=== PATIENT | male | born 1940 | race Caucasian/White ===

== ENCOUNTER 2016-07-06 15:41 | Inpatient (IN) | payer OTHER ==
[2016-07-06] MEDS ORDERED: ASPIRIN PO ONE (15:58)
[2016-07-06] MEDS ORDERED: ASPIRIN PO STA (15:58)
[2016-07-06 16:10] LABS: MANUAL DIFF NEEDED? NO
[2016-07-06 16:19] LABS: BASO% 0.2 % (0.0-0.8); EOS# 0.07 X1000 (0.0-0.7); EOS% 1.2 % (0.0-10.0); HEMOGLOBIN 14.9 g/dL (14.0-18.0); IMM GRAN# 0.01 X1000 (0.0-0.04); IMM GRAN% 0.2 % (0.0-0.5); LYMPH% 22.6 % (20.5-51.1); MCH 30.5 PG (27-31); MCHC 34.7 g/dL (33-37); MCV 87.9 FL (81-99); MONO# 0.44 X1000 (0.11-0.59); MONO% 7.7 % (1.7-9.3); MPV 9.5 FL (7.4-10.4); NEUT% 68.1 % (42.2-75.2); PLT 212 X1000 (130-400); RBC 4.89 XMIL (4.7-6.1)
[2016-07-06 16:29] LABS: AGAP 14; ALBUMIN 3.8 g/dL (3.5-5.0); ALKALINE PHOSPHATASE 89 U/L (32-122); BUN 14 mg/dL (8-22); CALCIUM 9.6 mg/dL (8.8-10.2); CHLORIDE 104 mmol/L (98-107); COSMO 287; GOT 21 U/L (10-34); GPT 24 U/L (10-44); MAGNESIUM 1.8 mg/dL (1.5-2.7); POTASSIUM 3.7 mmol/L (3.5-5.1); SODIUM 138 mmol/L (136-145); TCO2 21 mmol/L (25-35); TOTAL PROTEIN 6.3 g/dL (6.3-8.3)
--- NOTE | 2016-07-06 16:31 | EKG Report ---
Test Performed on : 07/06/2016 3:59:52 PM Test Reason : CHESTPAIN Blood Pressure : / mmHG Vent. Rate : 075 BPM Atrial Rate : 075 BPM P-R Int : 164 ms QRS Dur : 084 ms QT Int : 384 ms P-R-T Axes : 058 -22 079 degrees QTc Int : 428 ms Normal sinus rhythm. Normal ECG When compared with ECG of 02-OCT-2015 16:40, No significant change was found Unconfirmed Result
--- NOTE | 2016-07-06 16:41 | PROVIDER DOCUMENTATION ---
HPI-Chest Pain - General Chief Complaint: Chest Pain Stated Complaint: CONFUSION Time Seen by Provider: 07/06/16 15:58 Source: patient, family Allergies/Adverse Reactions: Patient Allergies Allergy/AdvReac Type Severity Reaction Status Date / Time nitroglycerin AdvReac Unknown Verified 10/02/15 16:53 Home Medications: Home Medication List Medication Instructions Recorded Confirmed Last Taken Type Ondansetron HCl [Zofran] 1 - 2 tab PO Q6H PRN PRN #10 tablet 10/02/15 Unknown Rx Oxycodone HCl/Acetaminophen 1 each PO 3-4XDAY PRN PRN #10 10/02/15 Unknown Rx [Percocet 7.5-325 mg Tablet] tablet Tamsulosin [Flomax] 0.4 mg PO DAILY #7 capsule 10/02/15 Unknown Rx - History of Present Illness-CP Nature of Presenting Problem: 76 y/o WM with a PMHx of CAD, HTN, HLD, DM and Parkinson's that presents to the ED with a 3 hour h/o chest tightness and acute fatigue. Pt states pain is located substernally with no radiation. Intensity at onset was reported as 2/10 and is currently a 10/10. Tightness is alleviated somewhat by food with no alleviated factors. Associated symptoms reported as confusion and fatigue. Location: reports: substernal Chest Pain Radiation: reports: no radiation Quality of Pain: reports: tightness Severity in ED: severe Onset/Duration: 1-3 hours ago Timing: still present, getting worse Context/Activities at Onset: reports: none Modifying Factors: improves with: eating Associated Symptoms: reports: fatigue Nitro Today/Relief: no nitro taken today Prior Chest Pain/Cardiac Workup: reports: angina, other (CABG) Review of Systems - Adult - REVIEW OF SYSTEMS - ADULT Constitutional: reports: fatique Eyes: reports: no symptoms reported Ears, Nose, Mouth & Throat: reports: no symptoms reported Cardiovascular: reports: chest pain Respiratory: reports: no symptoms reported Gastrointestinal: reports: no symptoms reported Genitourinary: reports: no symptoms reported Musculoskeletal: reports: no symptoms reported Integumentary: reports: no symptoms reported Neurological: reports: no symptoms reported Psychiatric: reports: no symptoms reported Endocrine: reports: no symptoms reported Hematologic/Lymphatic: reports: no symptoms reported Allergic/Immunologic: reports: no symptoms reported Past History - Adult - PAST MEDICAL HISTORY-ADULT Review of Records: reports: Old Records Reviewed, Nursing Assessment Review, Medications Reviewed Major Childhood Illnesses: reports: denies history Cardiovascular: reports: cardiac disease, CAD, HTN, hyperlipidemia Respiratory: reports: denies history Genitourinary: reports: kidney stones, prostatitis, other (urolithiasis/ ) Neurological: reports: Parkinson's Psychiatric: reports: denies history Endocrine/Immune: reports: Diabetes - PRIOR SURGERIES/PROCEDURES Surgical/Procedure History: reports: CABG - IMMUNIZATION STATUS Childhood Immunizations: UTD, See Nurse Assessment Flu Vaccine: See Nurse Assessment - FAMILY HISTORY Family History: reviewed, not pertinent - SOCIAL HISTORY Smoking: denies Substance Use: none/never Alcohol Use Frequency: never Living Situation: family Physical Exam-General - PHYSICAL EXAM-ADULT Initial Vital Signs Reviewed: Yes - CONSTITUTIONAL General Appearance: alert, no apparent distress, lethargic, slow to respond. negative: obtunded, combative - EYES Eyes: PERRL/EOMI, pink conjunctivae. negative: sclera injected, scleral icterus - HEAD, EARS, NOSE, MOUTH & THROAT HENMT: normocephalic/atraumatic, moist mucous membranes, normal ENT inspection. negative: pharyngeal erythema, tonsillar exudate - NECK Neck: non-tender, full range of motion. negative: C-spine tenderness - RESPIRATORY Respiratory: chest non-tender, lungs clear, normal breath sounds. negative: crackles, rales, rhonchi, stridor, wheezing - CARDIOVASCULAR Cardiovascular: normal peripheral pulses, regular rate, rhythm, no murmur - CHEST (BREASTS) Chest/Breast: other (tenderness at surgical scar) - GASTROINTESTINAL (ABDOMEN) Abdominal Exam: normal bowel sounds, non tender, soft. negative: guarding, rigid, rebound, tenderness - GENITOURINARY Male Genitalia: deferred Rectal Exam: deferred - LYMPHATIC Lymphatic: no adenopathy - MUSCULOSKELETAL Back Exam: negative: normal inspection, no CVA tenderness, no vertebral tenderness, muscle spasm Extremity: non-tender. negative: deformity, erythema - SKIN Integumentary: normal color, normal turgor, warm/dry, rash (bilateral lower extremities) - NEUROLOGIC Neurologic: grossly normal. negative: facial droop, focal weakness, motor weakness, sensory deficit - PSYCHIATRIC Psych/Mental Status: normal thought content, normal thought process, oriented x 3, depressed affect Progress - EKG 1 Time of EKG reading by physician:: 15:59 EKG Read and Signed by:: Karin Grimes Jr EKG Interpretation (*Must complete 3 of following elements*): Normal Rate: 75 Rhythm: sinus [place]: normal QRS: normal PA Interval: normal ST Wave: normal - XRAY 1 XRAY Study: Chest XRAY Interpretation: no acute process - CONSULTS/PCP/HOSPITALIST Notification #1 *Consult/PCP/Hospitalist*: Dr. Bain Time Discussed: 18:00 (admit. will see in consult when transferred to [facility]. ) #2 Consult: Dr. Bain Time Discussed: 18:22 Consult Disposition: Admit (accepted pt to [facility]) Departure - Departure Time of Disposition Order: 18:26 DIAGNOSIS: Chest pain Qualifiers: Chest pain type: precordial pain Qualified Code(s): R07.2 - Precordial pain Disposition: [place] [id number] Certified Medical Emergency: Emergent Condition: Good
[2016-07-06 16:42] LABS: CK PROFILE 276 U/L (24-204)
[2016-07-06 16:57] LABS: INR 1.01 (0.86-1.15); PROTIME 13.6 Seconds (12.1-15.5)
[2016-07-06 16:59] LABS: CK INDEX 2.3 (0.0-2.5)
--- NOTE | 2016-07-06 17:12 | Diag Imaging Result Document ---
PROCEDURE NAME: CHEST-2 VIEWS - 07/06/2016 FRONTAL AND LATERAL CHEST, TWO VIEWS: COMPARISON: 06/12/2010. FINDINGS: Sternal wires and surgical clips are present. The lungs are well expanded. The heart is not enlarged. The vessels are not distended. No pneumonia. No pleural effusions. No free air beneath the diaphragm. IMPRESSION: No acute abnormality.
--- NOTE | 2016-07-06 18:32 | EKG Report ---
Test Performed on : 07/06/2016 6:16:25 PM Test Reason : repeat Blood Pressure : / mmHG Vent. Rate : 060 BPM Atrial Rate : 060 BPM P-R Int : 176 ms QRS Dur : 086 ms QT Int : 424 ms P-R-T Axes : 041 -11 055 degrees QTc Int : 424 ms Sinus rhythm. with occasional premature ventricular complexes. Otherwise normal ECG When compared with ECG of 06-JUL-2016 15:59, (Unconfirmed) premature ventricular complexes. are now present Unconfirmed Result
[2016-07-06 19:22] LABS: CK INDEX 2.3 (0.0-2.5); CK-MB 5.25 ng/mL (0.0-5.0)
[2016-07-06 19:38] LABS: HEMOGLOBIN A1C 7.9 % (4.8-6.0)
[2016-07-06] MEDS ORDERED: ZOFRAN IV PRN (19:40)
[2016-07-06] MEDS ORDERED: PERCOCET-5 PO PRN (20:32)
[2016-07-06] MEDS ORDERED: LOVENOX SUBQ ONE (20:35)
[2016-07-06] MEDS ORDERED: MORPHINE IV PRN (20:35)
[2016-07-06] MEDS ORDERED: MAALOX PLUS LIQUID PO PRN (20:35)
[2016-07-06] MEDS ORDERED: PROTONIX PO ONE (20:36)
[2016-07-06] MEDS ORDERED: MAALOX PLUS LIQUID PO ONE (20:37)
[2016-07-06] MEDS ORDERED: LIPITOR PO SCH (21:00)
[2016-07-06] MEDS: HUMALOG SUBQ SCH (21:13)
[2016-07-06] MEDS: COZAAR PO SCH (21:24)
--- NOTE | 2016-07-06 21:51 | HISTORY AND PHYSICAL ---
REASON FOR ADMISSION: Chest pain today. PRIMARY CARE PHYSICIAN: David Kaba D.O. HISTORY OF PRESENT ILLNESS: Kevin Sndyer is a 76-year-old male with a past medical history of coronary artery disease status post CABG, type 2 diabetes, BPH, Parkinson's disease, kidney stones, hypertension, hyperlipidemia and diabetic neuropathy. He states that he went walking today and developed retrosternal chest tightness which subsequently became chest pain radiating to his left shoulder. He says on occasion he will get this pain but after a few minutes it resolves when he rests. He got concerned because the pain persisted for more than 2 hours and decided to get this checked out. He went to [facility] and the case was discussed with Dr. Cardozo who requested the patient be transferred to [facility]. The patient admits to having simultaneous lightheadedness but no shortness of breath. No nausea, vomiting, or GI complaints. He also admits to having some palpitations but no antecedent lower extremity redness, pain or swelling. No PND or orthopnea. No cough, fever or chills. He denies any urinary symptoms. No focal neurological complaints. No polyuria or polydipsia. Currently the patient's pain is almost resolved. REVIEW OF SYSTEMS: Twelve system review is negative. Positive findings per HPI. ALLERGIES: Nitroglycerin which causes him to have total circulatory collapse. HOME MEDICATIONS: Not reviewed [facility] but on record we have Flomax 0.4 mg daily, Percocet 1 q.6 p.r.n. and Zofran p.r.n. No other medications noted. PAST SURGICAL HISTORY: He had a CABG in 2006, kidney stones removed, benign skin tumors excised from his abdominal wall. He also had basal cell cancer excised from his right ear. FAMILY HISTORY: Both parents have heart disease and type 2 diabetes. No first- degree relatives with cancer. SOCIAL HISTORY: He does not smoke, drink, or use drugs. He is . LABORATORY WORK: EKG shows normal sinus rhythm with right axis deviation, without ischemic changes. Chest x-ray shows no acute abnormality. White count is 5000, hematocrit and hemoglobin 14 and 43, platelets 212,000, glucose 298, A1c 7.9, CK was 227 with an index of 2.3. Troponin 0.10. D-dimer is normal. PT and PTT is normal. Magnesium 1.8. PHYSICAL EXAMINATION: GENERAL: Pleasant, elderly, man, who is not in acute distress. He is A and O x3. Normal mood and affect. VITAL SIGNS: Blood pressure 148/70, heart rate 57, temperature is 97.3 degrees , 97% on room air, respiratory rate is 16. HEENT: Head normocephalic, atraumatic. PERRL, EOMI. He is anicteric, not pale. ENT and oropharynx examination are grossly normal. NECK: Supple. No JVD or carotid bruit. No thyromegaly. CHEST: Clear to auscultation. Air entry equal in both lung english. CARDIOVASCULAR: First and second heart sounds heard. No gallops, murmurs, rubs. Rhythm is regular. ABDOMEN: Protuberant, soft, tender, bowel sounds normal. RECTAL EXAMINATION: Deferred at this time. NEUROVASCULARLY: Intact with good volume of pulses. No clubbing or peripheral cyanosis. No edema. Neurological examination is grossly normal. No focal deficits. SKIN: Intact. No breakdown, lesions or erythema. MUSCULOSKELETAL: Examination is normal. ASSESSMENT: 1. Chest pain. Patient with documented ischemic heart disease. ? stable angina. 2. Type 2 diabetes uncontrolled. 3. Hypertension. 4. Hyperlipidemia. 5. Benign prostatic hypertrophy. 6. Parkinson's disease. 7. Kidney stones. PLAN: At this time patient will be admitted to our facility to start aspirin, high-dose statin and a 1 time dose of therapeutic Lovenox pending community affairs director's evaluation. Because of his pretest probability for ischemic heart disease at least moderate to high, he may have a catheterization done electively based on his clinical presentation. I will defer to community affairs director for this. Blood panels have been ordered. The patient will need to bring his home medications so we can start, discontinue or modify whichever one needs to be. In the interim his blood sugars are controlled with sliding scale. His blood pressure at this point in time may require treatment with either an ARB or calcium channel wali in the interim. His heart rate is less than 60 so this is a relative contraindication to using a beta- wali at this point in time. MTDD
[2016-07-07 05:14] LABS: MANUAL DIFF NEEDED? NO
[2016-07-07 05:23] LABS: BASO% 0.2 % (0.0-0.8); EOS# 0.11 X1000 (0.0-0.7); EOS% 2.5 % (0.0-10.0); HEMATOCRIT 40.7 % (42.0-52.0); HEMOGLOBIN 14.3 g/dL (14.0-18.0); LYMPH# 1.64 X1000 (1.2-3.4); LYMPH% 37.2 % (20.5-51.1); MCH 31.2 PG (27-31); MCHC 35.1 g/dL (33-37); MCV 88.7 FL (81-99); MONO# 0.36 X1000 (0.11-0.59); MONO% 8.2 % (1.7-9.3); MPV 9.4 FL (7.4-10.4); NEUT% 51.9 % (42.2-75.2); PLT 186 X1000 (130-400); RBC 4.59 XMIL (4.7-6.1)
[2016-07-07 05:39] LABS: AGAP 10; BUN 15 mg/dL (8-22); CALCIUM 9.1 mg/dL (8.8-10.2); CHLORIDE 105 mmol/L (98-107); CK PROFILE 151 U/L (24-204); COSMO 284; MAGNESIUM 1.9 mg/dL (1.5-2.7); POTASSIUM 4.1 mmol/L (3.5-5.1); SODIUM 140 mmol/L (136-145); TCO2 25 mmol/L (25-35)
[2016-07-07] MEDS: HUMALOG SUBQ SCH ×3 (06:07→16:08)
[2016-07-07] MEDS ORDERED: PROTONIX PO SCH (07:00)
[2016-07-07] MEDS ORDERED: PRILOSEC PO SCH (07:00)
--- NOTE | 2016-07-07 07:35 | EKG Report ---
Test Performed on : 07/07/2016 06:48:22 AM Test Reason : Chest Pain Blood Pressure : / mmHG Vent. Rate : 053 BPM Atrial Rate : 053 BPM P-R Int : 180 ms QRS Dur : 086 ms QT Int : 442 ms P-R-T Axes : 032 -21 050 degrees QTc Int : 414 ms Sinus bradycardia. with occasional premature ventricular complexes. Otherwise normal ECG When compared with ECG of 06-JUL-2016 18:16, (Unconfirmed) No significant change was found Confirmed by Pedro Olivo MD ([id number]) on 07/07/2016 9:02:30 PM
[2016-07-07] MEDS: TYLENOL PO PRN ×2 (08:00→13:12)
[2016-07-07] MEDS: COZAAR PO SCH (08:00)
[2016-07-07] MEDS ORDERED: FLOMAX PO SCH (09:00)
[2016-07-07] MEDS ORDERED: LEXISCAN ONE (09:32)
--- NOTE | 2016-07-07 09:51 | Diag Imaging Result Document ---
PROCEDURE NAME: HEAD W/O CONTRAST - 07/06/2016 CT OF THE HEAD WITHOUT CONTRAST: FINDINGS: There are calcifications in both internal carotid arteries. There is generalized cerebral atrophy. There are no previous studies available for comparison. The calvarium appears to be intact. The visualized paranasal sinuses are clear. IMPRESSION: Cerebral atrophy. No evidence of acute disease.
--- NOTE | 2016-07-07 10:10 | CONSULTATION ---
DATE OF CONSULTATION: 07/07/2016 REQUESTING PHYSICIAN: Hospitalist Service PRIMARY CARE PHYSICIAN: Dr. Kaba. He also follows with the [facility] in [place]. PRIMARY NAIL TECH: Dr. Adam Tobias REASON FOR CONSULTATION: Chest pain. HISTORY OF PRESENT ILLNESS: Mr. Snyder presented to the emergency room at [facility] [place] yesterday at about 3:30 p.m. complaining of sudden onset of chest heaviness that started about 12:30. He had taken a walk. He says that every other day he walks about 3 miles. There were no issues during his usual walk or afterwards. He ate lunch; however, by the time he was eating lunch, he already noticed some heaviness in the chest. This went on for 3 hours or so before he decided to come into the emergency room. He says that he has nitroglycerin at home. He chose not to take any because in the past he has experienced significant hypotension. Upon presentation to the emergency room, they did a 12-lead electrocardiogram that shows sinus rhythm with no acute ischemic changes. They have done several troponin levels, a total of 3. All of them are negative. ProBNP level is normal at 27. CPK was slightly elevated at the time of presentation. Index was borderline. Subsequent CPK was normal. The patient received a chest x-ray that shows no acute abnormality. Subsequent electrocardiogram done this morning reveals sinus bradycardia, PVCs and no acute changes. EKG has not changed. The patient is basically feeling back to normal as far as that chest heaviness; however, he is reporting a mild burning-like discomfort across the anterior chest which he says he has experienced frequently in the past. He attributes that to heartburn. PAST MEDICAL HISTORY: Positive for coronary artery disease. He has had open heart surgery in 2006 with mammary graft to LAD, vein graft to marginal 1, first diagonal and posterior descending branch of right coronary artery. Subsequently he has been catheterized by Dr. Tobias. He found occluded vein grafts to right coronary artery and marginal with mild disease in circumflex. He underwent stenting to right coronary artery in 10/2008. He has had additional heart catheterization in 2012 that showed patent graft to diagonal, patent mammary to LAD. They chose to treat him medically. His right coronary artery showed only moderate stenosis. He took a stress test using the PET Lexiscan protocol in 07/2015, and it came back normal. The patient has history of hypertension, hyperlipidemia. He has been followed by Dr. Carvalho, neurologist, in [place] for tremor. They were suspecting Parkinson disease; however, he did not believe that the patient had Parkinson on his last office visit from 07/2015. The patient has history of kidney stones. He is being followed by Dr. Laureano. He has had some depression. No history of sleep apnea. He has been treated for diabetes. PAST SURGICAL HISTORY: He has had previous prostate procedure, TURP, kidney stone removal. He had fusion of L5 in the back. Additional surgical history shows he has had the aforementioned coronary bypass procedure. SOCIAL HISTORY: He is to his for 18 years. This is his second marriage. He has 2 grownup children. He is not a smoker, not a drinker. He is a retired schoolteacher. He has been using [facility] and also David Kaba. He sees Dr. Ramon and Dr. Bryant at the [facility] and Dr. Kaba here in [facility]. The last time he saw him was over a year ago. FAMILY HISTORY: His father suddenly at the age of 72, heart attack. HOME MEDICATIONS: According to Dr. Tobias' note from 07/2015, he was taking Lipitor 40, Kombiglyze 5/500 once a day, lisinopril 10 daily, aspirin 325 daily, metoprolol 50 daily. According to the chart here in the hospital, he is on Flomax, oxycodone and Zofran. I think this is incomplete. ALLERGIES: As I mentioned, he does not tolerate sublingual nitroglycerin because of hypotension. REVIEW OF SYSTEMS: Beyond what I have already reported, there is nothing additional from review of multiple systems. PHYSICAL EXAMINATION: Vital signs: Blood pressure is 117/69, temperature 97.9, pulse 55, respirations 18. Awake, alert and oriented, no distress. HEENT is unremarkable. Chest: Clear to auscultation and percussion. Heart sounds regular and rhythmic. He does have scar of sternotomy. The sternum is stable. Abdomen is nontender. No masses or hepatomegaly. Extremities showed good pulses. No peripheral edema. Neurologic: He is somewhat slow to answer; however, he has no obvious tremor. He has no obvious focal deficit. He follows commands. He is awake, alert and oriented x3. DIAGNOSTIC DATA: His white count is 4410, hemoglobin 14.3. Sodium is 140, potassium 4.1, BUN is 15, creatinine 0.9. Cholesterol panel shows total 142, triglycerides 132, LDL is 90, HDL is 35. TSH is 5.79. IMPRESSION: 1. Chest discomfort, somewhat atypical. He has ruled out for myocardial infarction. The patient has severe coronary artery disease, previous bypass surgery with 2 grafts occluded and 2 grafts patent. Negative stress test about a year ago. 2. History of hypertension. 3. Reported history of hyperglycemia and hyperlipidemia. RECOMMENDATIONS: We will arrange for a followup walking Lexiscan myocardial perfusion study and also a 2D echocardiogram. Further advice will be forthcoming. If the test is positive, the patient wishes to be taken to [place] under Dr. Tobias for additional coronary intervention. We will discuss this with him after the review of the results of the aforementioned studies.
--- NOTE | 2016-07-07 14:41 | PROGRESS NOTE ---
DATE: 07/07/2016 SUBJECTIVE: Today Mr. Snyder referred to be doing fine. He actually did have some chest tightness, but denied any chest pain. Since he is here in the hospital, he has not had any of this chest tightness. According to him, this was the same sensation he had a couple years back when he had a heart attack. OBJECTIVE: Vital Signs: Stable. Blood pressure is 103/53, pulse of 70, respirations 15, temperature 97.9 degrees. Patient is saturating 97% on room air. General: Mr. Snyder is a 76-year- old male. He was in bed in no distress. HEENT: Mucosa is pink and moist. Anicteric. Acyanotic. Neck: Supple. Chest: Clear. Cardiovascular: Regular rate and rhythm. No murmurs, no rubs. No gallops. There is an old sternotomy scar. Abdomen: Distended, but nontender. Bowel sounds are present. Extremities: No pedal edema. AUDIO/VIDEO ENGINEER: Patient is alert, oriented x4. There is no focal neurological deficit. LABORATORY DATA: 1. WBC is 4.41 hemoglobin is 14.3, platelet count of 186. Chemistry is also reviewed, completely unremarkable. 2. Troponin's have been 4 times negative. DIAGNOSTIC DATA: An EKG done this morning show some sinus bradycardia with some PVCs, but no ST- segment abnormalities. ASSESSMENT: 1. Chest tightness/pain. Patient has very remarkable coronary artery disease. Has been seen by cardiology and he has already been stress 'd. We are waiting on the stress test result. If this comes back and is normal, we will be able to discharge the patient. 2. Dyslipidemia. 3. Diabetes mellitus type 2. 4. History of Parkinson. 5. Benign prostatic hyperplasia. PLAN: The patient medications have been reviewed. No changes at least for now; will be pending on the stress test. If that is fine, we will be able to discharge the patient today.
--- NOTE | 2016-07-07 17:39 | Diag Imaging Result Document ---
PROCEDURE NAME: MYOCARDIAL PERF SCAN, STR/REST - 07/07/2016 STUDY: Rest/stress walking Lexiscan myocardial perfusion study. INDICATION FOR TEST: Chest pain, coronary heart disease, previous bypass surgery. DESCRIPTION: The patient came into the Nuclear Lab on 07/07/2016, received a rest injection of technetium 99 sestamibi 13.5 millicuries. Multiple tomographic views of the cardiac structure were obtained at rest. Subsequently he walked on the treadmill using a modified protocol along with infusion of Lexiscan 0.4 mg. At peak infusion, he was injected with technetium 99 sestamibi 39.8 millicuries. Multiple tomographic views of the cardiac structure were obtained following completion of the protocol. SUMMARY OF ELECTROCARDIOGRAPHIC PORTION OF STUDY: Resting electrocardiogram showed sinus rhythm, rate 57 beats per minute. Resting blood pressure 144/84. Resting ECG shows no pathologic Q waves. There is nonspecific T wave flattening. There are PVCs. During the infusion of Lexiscan, the heart rate increased to a maximum of 104 beats per minute. Blood pressure dropped to 118/78. The patient reported no chest pain, shortness of breath, or palpitations. The ECG showed periods of frequent PVCs with even periods of well established ventricular bigeminy. Following the completion of the infusion, the heart rate and blood pressure returned back to baseline. No significant abnormalities were noted during the recovery phase. IMPRESSION: In summary, the electrocardiographic response to the walking Lexiscan protocol shows sinus rhythm with frequent PVCs and ventricular bigeminy. SUMMARY OF MYOCARDIAL PERFUSION PORTION OF STUDY: Poststress tomographic views of the left ventricle show normal homogenous distribution of radiotracer throughout the entire left ventricular myocardium. There is no evidence of any postexercise defect. The rest images show normal perfusion. Polar plots reveal the same. There is no evidence of neither inducible ischemia nor myocardial scar. Gated SPECT shows normal left ventricular systolic function. Ejection fraction 75% with normal ventricular volumes. No wall motion abnormality. Lung/heart ratio is normal. TID is normal. IMPRESSION: In summary, this study shows: 1. Unremarkable electrocardiographic response to the walking Lexiscan protocol. The patient developed episodes of ventricular bigeminy which probably do not relate to ischemia. 2. Normal poststress myocardial perfusion scan. There is no scintigraphic evidence of pharmacologically induces myocardial ischemia utilizing the Lexiscan protocol. 3. Normal left ventricular systolic function. Ejection fraction estimated at 75% with normal ventricular volumes. No wall motion abnormality. This study represents low risk for ischemic events.
[2016-07-07 19:40] VITALS: BP 137/72
--- NOTE | 2016-07-07 20:15 | DISCHARGE SUMMARY ---
ADMISSION DATE: 07/06/2016 DISCHARGE DATE: 07/07/2016 CONSULTATION DURING THIS ADMISSION: Cardiology was consulted. Patient was seen by Dr. Cardozo. FOLLOWUP: 1. Patient's primary care physician,David Kaba D.O. 2. Benefits Coordinator, Dr. Goldstein in [place]. ADMISSION DIAGNOSES: 1. Chest pain. 2. Diabetes. 3. Hypertension. 4. Parkinson's disease. DISCHARGE DIAGNOSES: 1. Chest tightness/pain with normal stress test. 2. Dyslipidemia. 3. Diabetes mellitus type 2. DISCHARGE MEDICATIONS: 1. Atorvastatin 40 mg at bedtime. 2. Metoprolol 50 b.i.d. 3. Onglyza 5 mg daily. 4. Metformin 1000 p.o. daily. 5. Aspirin 325 p.o. daily. 6. Pantoprazole 40 mg daily. PRESENTING COMPLAINT: Chest tightness. HISTORY OF PRESENTING COMPLAINT: Mr. Snyder is a 73-year-old, male with a history of stent status post CABG, who presented to [facility] because of chest tightness associated with chest pain. Cardiology was consulted and patient was deemed necessary to be brought here for risk stratification. HOSPITAL COURSE: The patient did pretty well during the hospital course. He did not have anymore chest pain. Patient's troponins were trended on 4 different occasions and were all negative. EKG was also unremarkable so myocardial infarction was ruled out. However, stress test was done which just came back negative. Patient is completely asymptomatic now. We will, therefore, discharge him to follow up with his primary care doctor and primary network designer in [place] since he does seem to have very good followup. At the time of discharge, the patient has no complaints. His vitals were stable. I did review all the reports with him and he is in agreement to go home. DISCHARGE TIME: 36 minutes. MTDD
[2016-07-07] MEDS ORDERED: ASPIRIN PO SCH (21:00)
== END 2016-07-07 20:00 | disposition home or self-care (01) | DRG 313 ==
LOC: P.ED 15:41 → 4N 15:42 → OBSVTOIN 19:40
PROVIDERS: ATTEND Internal Medicine
DX: R07.89 Other chest pain (principal); I25.810 Atherosclerosis of coronary artery bypass graft(s) without angina pectoris; E11.40 Type 2 diabetes mellitus with diabetic neuropathy, unspecified; E11.65 Type 2 diabetes mellitus with hyperglycemia; I25.10 Atherosclerotic heart disease of native coronary artery without angina pectoris; I10 Essential (primary) hypertension; E78.5 Hyperlipidemia, unspecified; Z79.899 Other long term (current) drug therapy; Z85.828 Personal history of other malignant neoplasm of skin; Z87.442 Personal history of urinary calculi; Z82.49 Family history of ischemic heart disease and other diseases of the circulatory system; Z83.3 Family history of diabetes mellitus; Z95.5 Presence of coronary angioplasty implant and graft; Z98.1 Arthrodesis status; Z79.82 Long term (current) use of aspirin; I25.2 Old myocardial infarction
CPT/HCPCS: 70450; 71020; 78452; 80048; 80053; 80061; 82550; 82553; 82948; 83036; 83721; 83735; 83880; 84443; 84484; 85025; 85379; 85610; 93005; 93010; 93017; 94761; 99285; A9500; J1650; J1815

== ENCOUNTER 2019-08-10 20:14 | Inpatient (IN) ==
[2019-08-10] MEDS ORDERED: NS 500 ML IV ONE (20:42)
--- NOTE | 2019-08-10 20:55 | PROVIDER DOCUMENTATION ---
HPI-Syncope/Dizziness - General Chief Complaint: Fall Stated Complaint: FALL Time Seen by Provider: 08/10/19 20:21 Source: patient Allergies/Adverse Reactions: Patient Allergies Allergy/AdvReac Type Severity Reaction Status Date / Time Corticosteroids Allergy Severe HIVES Verified 08/10/19 20:26 (Glucocorticoids) nitroglycerin AdvReac "blood Verified 08/10/19 20:26 pressure collapses" Home Medications: Home Medication List Medication Instructions Recorded Confirmed Last Taken Type ATORVAstatin [Lipitor] 40 mg PO QHS 07/07/16 04/23/17 12/30/16 10:30 History Aspirin 325 mg PO DAILY 07/07/16 04/23/17 12/29/16 History LISINOpril [Prinivil] 10 mg PO DAILY 07/07/16 04/23/17 12/30/16 10:30 History Metformin [Glucophage] 1,000 mg PO WBREAKFAST 07/07/16 04/23/17 12/30/16 10:30 History Metoprolol Tartrate 50 mg PO BID 07/07/16 04/23/17 12/30/16 10:30 History Saxagliptin [Onglyza] 5 mg PO DAILY 07/07/16 04/23/17 12/30/16 10:30 History Oxycodone HCl/Acetaminophen 1 each PO Q4H PRN PRN #20 tablet 12/30/16 04/23/17 Unknown Rx [Percocet 5-325 mg Tablet] Hydrocodone/APAP 7.5 mg/325 mg 1 ea PO Q6H PRN PRN #12 tab 04/16/17 04/23/17 Unknown Rx [[place]-7.5] Ondansetron HCl [Zofran] 4 mg PO Q4H PRN PRN #20 tab 04/16/17 04/23/17 Unknown Rx Hydrocodone/APAP 7.5 mg/325 mg 1 ea PO Q6H PRN PRN #10 tab 08/12/18 Unknown Rx [[place]-7.5] Levofloxacin [Levaquin] 750 mg PO DAILY #7 tab 08/12/18 Unknown Rx Phenazopyridine [Pyridium] 100 mg PO TID #9 tab 08/12/18 Unknown Rx Ciprofloxacin HCl [Cipro] 500 mg PO BID #10 tab 10/06/18 Unknown Rx Nitrofurantoin Crisp/Macrocryst 100 mg PO BID #20 cap 11/30/18 Unknown Rx [Macrobid] Fluconazole [Diflucan] 150 mg PO DAILY #1 tab 12/02/18 Unknown Rx Hydrocodone/APAP 5 mg/325 mg 1 ea PO Q6H PRN PRN #12 tab 12/02/18 Unknown Rx [Ambler-5] - History of Present Illness-Syncope/Dizzy Nature of Presenting Problem: Patient is a 79 yom who c/o a headache, confusion, expressive aphasia, neck pain, and right hip pain since syncopal episode 3 days ago and subsequent fall. Struck back of head on his porch. Denies chest pain, SOB, or any other complaints. Review of Systems - Adult - REVIEW OF SYSTEMS - ADULT Constitutional: reports: no symptoms reported Eyes: reports: no symptoms reported Ears, Nose, Mouth & Throat: reports: no symptoms reported Cardiovascular: reports: see HPI, syncope. denies: chest pain Respiratory: reports: no symptoms reported. denies: shortness of breath Gastrointestinal: reports: no symptoms reported Genitourinary: reports: no symptoms reported Musculoskeletal: reports: no symptoms reported Integumentary: reports: no symptoms reported Neurological: reports: see HPI, headache/migraines, syncope Psychiatric: reports: no symptoms reported Endocrine: reports: no symptoms reported Hematologic/Lymphatic: reports: no symptoms reported Allergic/Immunologic: reports: no symptoms reported All Other Systems: Reviewed and Negative Past History - Adult - PAST MEDICAL HISTORY-ADULT Review of Records: reports: Old Records Reviewed, Nursing Assessment Review, Medications Reviewed, Social history reviewed & non-contributory. Major Childhood Illnesses: reports: denies history Cardiovascular: reports: cardiac disease, CAD, HTN, hyperlipidemia Respiratory: reports: denies history Gastrointestinal: reports: denies history Obstetrical/Gynecological: reports: denies history Genitourinary: reports: kidney stones, prostatitis, other (urolithiasis/ ) Musculoskeletal: reports: denies history Neurological: reports: Parkinson's Psychiatric: reports: denies history Endocrine/Immune: reports: Diabetes Other Conditions: reports: denies history - PRIOR SURGERIES/PROCEDURES Surgical/Procedure History: reports: CABG, hernia repair, other (kidney stone) - IMMUNIZATION STATUS Childhood Immunizations: See Nurse Assessment Flu Vaccine: See Nurse Assessment - FAMILY HISTORY Family History: reviewed, not pertinent - SOCIAL HISTORY Smoking: non-smoker Physical Exam-General - PHYSICAL EXAM-ADULT Initial Vital Signs Reviewed: Yes - CONSTITUTIONAL General Appearance: alert, no apparent distress. negative: lethargic - EYES Eyes: PERRL/EOMI, pink conjunctivae - HEAD, EARS, NOSE, MOUTH & THROAT HENMT: moist mucous membranes, TM obscurred by cerumen (right), other (tenderness and swelling noted to right occipital region) - NECK Neck: full range of motion, supple, normal inspection, C-spine tenderness - RESPIRATORY Respiratory: chest non-tender, lungs clear, normal breath sounds, no pleuratic chest pain, no respiratory distress, no accessory muscle use - CARDIOVASCULAR Cardiovascular: normal peripheral pulses, regular rate, rhythm, no edema, no gallop, no murmur - GASTROINTESTINAL (ABDOMEN) Abdominal Exam: normal bowel sounds, non tender, soft - MUSCULOSKELETAL Back Exam: normal inspection, no vertebral tenderness (of t-spine, l-spine, see note above regarding c-spine) Extremity: normal range of motion, non-tender, normal inspection, normal capillary refill, pelvis stable. negative: abnormal NV exam, deformity, slow capillary refill - SKIN Integumentary: normal color, warm/dry. 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 negative: facial droop - PSYCHIATRIC Psych/Mental Status: normal mood/affect, normal thought content, normal thought process, oriented x 3 Progress - PLAN OF CARE/RESULTS Progress/Plan/Lab Results: Vital Signs - 8 hr 08/10/19 20:16 08/10/19 21:04 Temperature 97.4 F L Pulse Rate 73 63 Respiratory Rate 20 18 Blood Pressure 115/75 124/68 O2 Sat by Pulse Oximetry 97 96 Laboratory Results - last 24 hr 08/10/19 08/10/19 08/10/19 21:00 21:00 21:00 WBC 4.31 L RBC 4.55 L Hgb 13.1 L Hct 39.2 L MCV 86.2 MCH 28.8 MCHC 33.4 RDW Std Deviation 13.2 Plt Count 244 MPV 8.8 Immature Gran % (Auto) 0.2 Neut % (Auto) 60.3 Lymph % (Auto) 25.5 Crisp % (Auto) 10.9 H Eos % (Auto) 2.6 Baso % (Auto) 0.5 Immature Gran # (Auto) 0.01 Neut # (Auto) 2.60 Lymph # (Auto) 1.10 L Crisp # (Auto) 0.47 Eos # (Auto) 0.11 Baso # (Auto) 0.02 PT INR PTT (Actin FS) Sodium 135 L Potassium 4.0 Chloride 102 Carbon Dioxide 20 L Anion Gap 13 BUN 19 Creatinine 0.9 Estimated GFR/1.73 m2 > 60 BUN/Creatinine Ratio 21 Glucose 184 H Calculated Osmolality 277 Calcium 9.5 Magnesium 1.7 Total Bilirubin 0.40 AST 13 ALT < 5 L Alkaline Phosphatase 74 Troponin T High Sens 20 H Total Protein 6.4 Albumin 4.0 Globulin 2.0 Albumin/Globulin Ratio 2.0 Urine Source Urine Color Urine Turbidity Urine pH Ur Specific [place] Urine Protein Ur Glucose (Stick) Ur Ketones (Stick) Urine Blood Urine Nitrite Urine Bilirubin Urobilinogen Dipstick Urine Leukocytes Urine WBC (Auto) Urine RBC (Auto) U Epithel Cells (Auto) Urine Bacteria (Auto) 08/10/19 08/10/19 21:00 22:47 WBC RBC Hgb Hct MCV MCH MCHC RDW Std Deviation Plt Count MPV Immature Gran % (Auto) Neut % (Auto) Lymph % (Auto) Crisp % (Auto) Eos % (Auto) Baso % (Auto) Immature Gran # (Auto) Neut # (Auto) Lymph # (Auto) Crisp # (Auto) Eos # (Auto) Baso # (Auto) PT 13.9 INR 1.02 PTT (Actin FS) 28.2 Sodium Potassium Chloride Carbon Dioxide Anion Gap BUN Creatinine Estimated GFR/1.73 m2 BUN/Creatinine Ratio Glucose Calculated Osmolality Calcium Magnesium Total Bilirubin AST ALT Alkaline Phosphatase Troponin T High Sens Total Protein Albumin Globulin Albumin/Globulin Ratio Urine Source CLEAN CATCH Urine Color YELLOW Urine Turbidity TURBID Urine pH 6.0 Ur Specific [place] 1.027 Urine Protein 100 A Ur Glucose (Stick) 1000 A Ur Ketones (Stick) TRACE A Urine Blood LARGE A Urine Nitrite NEGATIVE Urine Bilirubin NEGATIVE Urobilinogen Dipstick NORMAL Urine Leukocytes LARGE A Urine WBC (Auto) TNTC A Urine RBC (Auto) TNTC A U Epithel Cells (Auto) <10 Urine Bacteria (Auto) NEGATIVE Orders Category Date Time Status Admit - [facility] Routine AdmDCTranf 08/10/19 23:37 Active Cardiac Monitoring DIRECTED Care 08/10/19 20:42 Active ED: Orthostatic Vital Signs (ER use this DIRECTED Care 08/10/19 20:44 Active Neurological Check Q2H Care 08/10/19 23:38 Active Nursing- Obtain EKG ONCE Care 08/10/19 20:42 Active Resuscitation Status Routine Care 08/10/19 23:38 Ordered Vital Signs Order ROUTINE Care 08/10/19 23:38 Active Z-Document. for Tele Applied ORDERED Care 08/10/19 23:39 Active Heart Healthy Diet Diet 08/10/19 23:39 Active CHEST-2 VIEWS [RAD] Stat Exams 08/10/19 20:[address] HEAD/C-SPINE W/O CONTRAST [CT] Stat Exams 08/10/19 20:42 Completed MRI BRAIN W/WO CONTRAST [MRI] Stat Exams 08/10/19 23:41 Ordered XRAY PELVIS W/HIP 2-3VW RT [RAD] Stat Exams 08/10/19 20:42 Taken CBC WITH DIFF [HEME] Routine Lab 08/11/19 06:00 Ordered CBC WITH DIFF [HEME] Stat Lab 08/10/19 21:00 Completed COMPREHENSIVE METABOLIC PANEL [CHEM] Routine Lab 08/11/19 06:00 Uncollected COMPREHENSIVE METABOLIC PANEL [CHEM] Stat Lab 08/10/19 21:00 Completed MAGNESIUM [CHEM] Stat Lab 08/10/19 21:00 Completed PROTIME WITH INR [COAG] Stat Lab 08/10/19 21:00 Completed PTT [COAG] Stat Lab 08/10/19 21:00 Completed TROPONIN T HIGH SENSITIVITY Q6H Lab 08/10/19 23:41 Uncollected TROPONIN T HIGH SENSITIVITY Q6H Lab 08/11/19 05:41 Uncollected TROPONIN T HIGH SENSITIVITY Stat Lab 08/10/19 21:00 Completed UA NIMS W/REFLEX CULT [URINALYSIS] Stat Lab 08/10/19 22:47 Results URINE CULTURE [RM] Routine Lab 08/10/19 23:44 Ordered URINE MANUAL MICROSCOPIC [URINALYSIS] Stat Lab 08/10/19 22:47 Results 0.9% Sodium Chloride Inj [Ns] 1,000 ml Med 08/10/19 23:38 Active IV 100 mls/hr 0.9% Sodium Chloride Inj [Ns] 1,000 ml Med 08/10/19 23:45 Ordered IV 100 mls/hr 0.9% Sodium Chloride Inj [Ns] 500 ml Med 08/10/19 20:42 Active IV 100 mls/hr Acetaminophen [Tylenol] Med 08/10/19 23:38 Ordered 650 mg PO Q6H PRN PRN Insulin Human Regular ([place] [Humulin R ([place])] Med 08/10/19 23:40 Once See Protocol SUBQ NOW ONE Ondansetron [Zofran] Med 08/10/19 23:38 Ordered 4 mg IV Q6H PRN Rocephin 1 gm/Ns IV Q24h Med 08/10/19 23:45 Ordered CefTRIAXONE [Rocephin] 1 gm 0.9% Sodium Chloride Inj [Ns] 50 ml IV Q24H Oxygen Device Routine Oth 08/10/19 23:38 Active Telemetry [OM.EQ] Routine Oth 08/10/19 23:38 Active Carotid Ultrasound Routine Ther 08/10/19 23:44 Ordered EKG [EKG] Stat Ther 08/10/19 20:42 Ordered Echo Spec/Color Doppler Stat Ther 08/10/19 23:41 Ordered Transfer/Admit Order [TRANSFER] Routine Transfer 08/10/19 23:37 Ordered Result Diagrams: 08/10/19 21:00 08/10/19 21:00 - EKG 1 Time of EKG reading by physician:: 21:58 EKG Read and Signed by:: Gerry Claire EKG Interpretation (*Must complete 3 of following elements*): Abnormal Rate: 62 Rhythm: NSR, poss. anterior infarct, age undetermined. QRS: normal - XRAY 1 XRAY Study: Chest (Lungs normally expanded and clear. No pneumothorax. No pneumonia.) 2 XRAY: Right XRAY Study: Hip (No fracture. No dislocation.) - CT/MRI 1 CT Study: Cervical Spine ([facility] - [address], [address], [place] [address] [facility] - [address] [place] [address] Department of Imaging Patient: MARCELO CAIN WADM Date: 08/10/19MR#: [id number] : 1940DM [id number] Age/Sex: 79/MRoom/Bed: Loc: P.ED Ordering Physician: Luca Chisholm Family Physician: David Kaba DO Reason for Procedure: AMS, head trauma ___ Signed EXAM: CT HEAD/C-SPINE W/O CONTRAST INDICATION: AMS, head trauma TECHNIQUE: This exam was performed using automated exposure control, adjustment of mA or kV according to patient size, and/or use of iterative reconstruction technique. COMPARISON: 04/16/2017 FINDINGS: Head: There is advanced diffuse brain atrophy that is essentially stable. There is no definite acute infarct given the limited sensitivity of CT versus MRI. There is no discrete intracranial mass, mass effect, or intracranial hemorrhage. There is suggestion of mild scalp edema posteriorly. The calvaria is intact. C-spine: There is advanced multilevel facet arthropathy and there is milder multilevel degenerative disc disease. The C6-7 level appears to be fused. The severe facet arthropathy is causing mild anterolisthesis of C4 on C5 and C5 on C6. All of these findings are essentially stable. Otherwise, there is no discrete fracture, subluxation, or intrinsic osseous lesion. The surrounding soft tissues are essentially unremarkable. IMPRESSION: 1.Extensive diffuse brain atrophy that is stable. No evidence of acute intracranial pathology. 2.Advanced multilevel degenerative arthropathy throughout the cervical spine that appears stable. No evidence of fracture or other definite acute C-spine injury. Electronically signed by Gonzalo Herrera 08/10/2019 9:31 PM 08/10/192130 Interpreting Physician: Gonzalo Herrera MD Dictated Date/Time: 08/10/192123 cc: Luca Chisholm; David Kaba DO), Head - CONSULTS/PCP/HOSPITALIST Notification #1 *Consult/PCP/Hospitalist*: Dr. Shelley Time Discussed: 23:36 Reason/Comments: admit- syncope, AMS Consult Disposition: Admit ( accepted admit, requests echo, carotid dopplers, and MRI brain with and w/o contrast in the am as well as CBC/CMP in the am.) Departure - Departure Date of Disposition Decision: 08/10/19 Time of Disposition Decision: 23:00 DIAGNOSIS: Altered mental status Qualifiers: Altered mental status type: unspecified Qualified Code(s): R41.82 - Altered mental status, unspecified Headache Qualifiers: Headache type: unspecified Headache chronicity pattern: acute headache Intractability: not intractable Qualified Code(s): R51 - Headache Syncope Qualifiers: Syncope type: unspecified Qualified Code(s): R55 - Syncope and collapse Disposition: ADMITTED INPATIENT 09 Certified Medical Emergency: Emergent Condition: Stable Referrals and Follow-Ups: David Kaba DO [Primary Care Provider] - Discharge Education: Migraine Headache, [id number] - Critical Care Note This patient required my direct & personal management of CC.: No Attestation - Physician/ RUDDY Attestation Patient care was provided by Advanced Practice Provider:: Yes Advanced Practice Provider:: Luca Chisholm Advanced Practice Provider documentation review:: The Mid-level provider documentation, treatment plan and medical decision making was reviewed by the physician who agrees with all treatment and medical decision making by the MLP. The physician spent face to face time with patient:: No Advanced Practice Provider documentation review:: Supervising physician onsite and consulted in the evaluation and care of this patient. The physician did not have a face to face encounter with the patient. - NIH Stroke Scale NIH Type: Initial Evaluation Level of Consciousness: 0-Alert LOC Questions (ask month and age): 0-Answers Both Correctly LOC Commands (ask to open & close eyes;make a fist, let go): 0-Obeys Both Correctly Best Gaze (horizontal eye movement): 0-Normal Visual (use finger movement, counting or visual threat): 0-No Visual Loss Facial Palsy (show teeth or raise eyebrows & close eyes tght: 0-Symmetrical M ovement Motor Function-left arm: 0-Normal Motor Function-right arm: 0-Normal Motor Function-left le-Normal Motor Function-right le-Normal Limb Ataxia([id number]-[id number], or heel to hamilton): 2-Present in two limbs (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
[2019-08-10 21:15] LABS: BASO# 0.02 X1000 (0.0-0.2); BASO% 0.5 % (0.0-0.8); EOS# 0.11 X1000 (0.0-0.7); EOS% 2.6 % (0.0-10.0); HEMATOCRIT 39.2 % (42.0-52.0); HEMOGLOBIN 13.1 g/dL (14.0-18.0); IMM GRAN# 0.01 X1000 (0.0-0.04); IMM GRAN% 0.2 % (0.0-0.5); LYMPH% 25.5 % (20.5-51.1); MCH 28.8 PG (27-31); MCHC 33.4 g/dL (33-37); MCV 86.2 FL (81-99); MONO# 0.47 X1000 (0.11-0.59); MONO% 10.9 % (1.7-9.3); MPV 8.8 FL (7.4-10.4); NEUT% 60.3 % (42.2-75.2); PLT 244 X1000 (130-400); RBC 4.55 XMIL (4.7-6.1); RDW 13.2 % (11.5-14.5); WBC 4.31 X1000 (4.8-10.8)
--- NOTE | 2019-08-10 21:33 | Diag Imaging Result Doc PS360 ---
EXAM: CT HEAD/C-SPINE W/O CONTRAST INDICATION: AMS, head trauma TECHNIQUE: This exam was performed using automated exposure control, adjustment of mA or kV according to patient size, and/or use of iterative reconstruction technique. COMPARISON: 04/16/2017 FINDINGS: Head: There is advanced diffuse brain atrophy that is essentially stable. There is no definite acute infarct given the limited sensitivity of CT versus MRI. There is no discrete intracranial mass, mass effect, or intracranial hemorrhage. There is suggestion of mild scalp edema posteriorly. The calvaria is intact. C-spine: There is advanced multilevel facet arthropathy and there is milder multilevel degenerative disc disease. The C6-7 level appears to be fused. The severe facet arthropathy is causing mild anterolisthesis of C4 on C5 and C5 on C6. All of these findings are essentially stable. Otherwise, there is no discrete fracture, subluxation, or intrinsic osseous lesion. The surrounding soft tissues are essentially unremarkable. IMPRESSION: 1.Extensive diffuse brain atrophy that is stable. No evidence of acute intracranial pathology. 2.Advanced multilevel degenerative arthropathy throughout the cervical spine that appears stable. No evidence of fracture or other definite acute C-spine injury. Electronically signed by Gonzalo Herrera 08/10/2019 9:31 PM
[2019-08-10 21:36] LABS: INR 1.02; PROTIME 13.9 Seconds (11.0-16.0)
[2019-08-10 21:37] LABS: PTT 28.2 Seconds (22.3-41.8)
[2019-08-10 21:43] LABS: ESTIMATED GFR > 60
[2019-08-10 21:55] LABS: AGAP 13; ALKALINE PHOSPHATASE 74 U/L (32-122); BUN 19 mg/dL (8-22); CALCIUM 9.5 mg/dL (8.8-10.2); CHLORIDE 102 mmol/L (98-107); COSMO 277; CREATININE 0.9 mg/dL (0.7-1.2); GLUCOSE 184 mg/dL (70-104); GOT 13 U/L (10-34); GPT < 5 U/L (10-44); MAGNESIUM 1.7 mg/dL (1.5-2.7); SODIUM 135 mmol/L (136-145); TCO2 20 mmol/L (25-35); TOTAL PROTEIN 6.4 g/dL (6.3-8.3)
[2019-08-10 22:58] LABS: URINE SOURCE CLEAN CATCH
[2019-08-10 23:26] LABS: BILIRUBIN URINE NEGATIVE (NEGATIVE); BLOOD URINE LARGE (NEGATIVE); COLOR YELLOW; GLUCOSE URINE 1000 mg/dL (NEGATIVE); KETONE URINE TRACE mg/dL (NEGATIVE); LEUKOCYTES URINE LARGE (NEGATIVE); NITRITE URINE NEGATIVE (NEGATIVE); PROTEIN URINE 100 mg/dL (NEGATIVE); SP GRAVITY URINE 1.027; TURBIDITY URINE TURBID (CLEAR); UROBILINOGEN URINE NORMAL (NORMAL)
[2019-08-10] MEDS ORDERED: ZOFRAN IV PRN (23:38)
[2019-08-10] MEDS ORDERED: NS 1,000 ML IV ONE ×2 (23:38→23:45)
[2019-08-10] MEDS ORDERED: HUMULIN R (PARKWAY) SUBQ ONE (23:40)
[2019-08-10 23:43] LABS: UR EPITHELIAL CELLS <10 /HPF (<10); URINE RBC TNTC /HPF (<10); URINE WBC TNTC /HPF (<10)
[2019-08-10] MEDS ORDERED: TYLENOL ONE (23:43)
[2019-08-10 23:47] LABS: URINE BACTERIA 4+ /HPF; URINE YEAST PRESENT
[2019-08-10 23:48] LABS: URINE CASTS NONE SEEN; URINE CRYSTALS NONE SEEN; URINE SMALL ROUND CELLS NONE SEEN
[2019-08-11] MEDS: TYLENOL PO PRN ×2 (00:01→08:08)
[2019-08-11] MEDS: ROCEPHIN 1 GM in NS 50 ML IV SCH (00:14)
--- NOTE | 2019-08-11 02:27 | EKG Report ---
Test Performed on : 08/10/2019 9:54:46 PM Test Reason : syncope, AMS Blood Pressure : / mmHG Vent. Rate : 062 BPM Atrial Rate : 062 BPM P-R Int : 170 ms QRS Dur : 082 ms QT Int : 386 ms P-R-T Axes : 041 021 056 degrees QTc Int : 391 ms Normal sinus rhythm. Possible Anterior infarct , age undetermined Abnormal ECG When compared with ECG of 07-JUL-2016 06:48, premature ventricular complexes. are no longer present Unconfirmed Result
--- NOTE | 2019-08-11 06:04 | Diag Imaging Result Doc PS360 ---
EXAM: CHEST-2 VIEWS HISTORY: syncope, AMS TECHNIQUE: Two views COMPARISON: 07/06/2016 FINDINGS: The lungs are well expanded. The heart is not enlarged. There are sternal wires. The vessels are not distended. There are no infiltrates. No pleural effusions. IMPRESSION: No acute abnormality. Electronically signed by Jerel Combs 08/11/2019 6:02 AM
--- NOTE | 2019-08-11 06:07 | Diag Imaging Result Doc PS360 ---
EXAM: XRAY PELVIS W/HIP 2-3VW RT HISTORY: syncope,fall, R hip pain TECHNIQUE: Three views COMPARISON: None. FINDINGS: No fracture. No dislocation. IMPRESSION: No acute bony injury. Electronically signed by Jerel Combs 08/11/2019 6:05 AM
[2019-08-11 06:11] LABS: AGAP 11; ALBUMIN 3.6 g/dL (3.5-5.0); ALKALINE PHOSPHATASE 70 U/L (32-122); BUN 18 mg/dL (8-22); CALCIUM 8.8 mg/dL (8.8-10.2); CHLORIDE 104 mmol/L (98-107); COSMO 284; CREATININE 0.9 mg/dL (0.7-1.2); ESTIMATED GFR > 60; GLUCOSE 220 mg/dL (70-104); GOT 14 U/L (10-34); GPT 12 U/L (10-44); POTASSIUM 3.9 mmol/L (3.5-5.1); SODIUM 138 mmol/L (136-145); TCO2 23 mmol/L (25-35); TOTAL PROTEIN 5.8 g/dL (6.3-8.3)
[2019-08-11 06:22] LABS: BASO# 0.01 X1000 (0.0-0.2); BASO% 0.3 % (0.0-0.8); EOS# 0.11 X1000 (0.0-0.7); EOS% 3.1 % (0.0-10.0); HEMOGLOBIN 12.5 g/dL (14.0-18.0); IMM GRAN# 0.02 X1000 (0.0-0.04); IMM GRAN% 0.6 % (0.0-0.5); LYMPH# 1.04 X1000 (1.2-3.4); LYMPH% 29.6 % (20.5-51.1); MCH 29.1 PG (27-31); MCHC 32.9 g/dL (33-37); MCV 88.4 FL (81-99); MONO# 0.38 X1000 (0.11-0.59); MONO% 10.8 % (1.7-9.3); NEUT# 1.95 X1000 (1.4-6.5); NEUT% 55.6 % (42.2-75.2); PLT 209 X1000 (130-400); RDW 13.4 % (11.5-14.5); WBC 3.51 X1000 (4.8-10.8)
--- NOTE | 2019-08-11 08:25 | Vascular Study Report ---
EXAM: Carotid Ultrasound HISTORY: syncope TECHNIQUE: Carotid Doppler ultrasound COMPARISON: None. FINDINGS: Right: Normal flow in the common carotid artery. No occlusion or stenosis. There is a small amount of plaque in the proximal internal carotid artery. The peak systolic velocity in the internal carotid artery 76 2 cm/s. The ICA/CCA ratio 0.8. Antegrade vertebral flow. Left: Normal flow in the common carotid artery. No occlusion or stenosis. There is a small amount of plaque in the proximal internal carotid artery. The peak systolic velocity within the internal carotid artery 62 cm/s. The ICA/CCA ratio 0.9. Antegrade vertebral flow. IMPRESSION: Mild stenosis within each proximal internal carotid artery of less than 40%. Electronically signed by Jerel Combs 08/11/2019 8:22 AM
[2019-08-11] MEDS ORDERED: NORCO-7.5 PO PRN (10:48)
[2019-08-11] MEDS ORDERED: GLUCOPHAGE PO SCH (11:00)
--- NOTE | 2019-08-11 11:48 | HISTORY AND PHYSICAL ---
PRIMARY CARE PHYSICIAN: Dr. David Kaba. HISTORY OF PRESENT ILLNESS: This is a 79-year-old male, with past medical history of diabetes, hyperlipidemia, Parkinson disease, coronary artery disease, who presented to the emergency department complaining of headache, confusion. According to ER physician, expressive aphasia, neck pain, and right hip pain. The patient reports that at home he had a syncopal episode 3 days ago and also he had a fall. He struck back of the head on his porch. He does not know for how long he had been unconscious. He did not seek for any medical attention. Today because of headaches and pain, the patient decided to come to the emergency department. Upon my examination, the patient reports feeling better, awake, with no aphasia of course. We are going to admit this patient for further evaluation and treatment. PAST MEDICAL HISTORY: 1. Diabetes mellitus type 2. 2. Hypercholesterolemia. 3. Parkinson disease. 4. Coronary artery disease with 1 stent placed 2 years ago. PAST SURGICAL HISTORY: 1. Coronary artery disease bypass graft, quadruple, done in 2004. The patient is being followed with Dr. Tobias in [place] from Cardiology. 2. 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 3. Multiple surgeries for kidney stones. 4. Hiatal hernia surgery. 5. Neck fusion in the cervical area 30 years ago. SOCIAL HISTORY: The patient is a never smoker. Does not drink alcohol. Patient denies using any drugs. Patient lives with . FAMILY HISTORY: Noncontributory. ALLERGIES: No known drug allergies. REVIEW OF SYSTEMS: Eleven systems were reviewed and all symptoms related are in the H and P. PHYSICAL EXAMINATION: VITALS: Temperature 97.6 degrees, heart rate 50, respiratory rate 18, blood pressure 125/66, O2 saturation 99% on room air. GENERAL EXAMINATION: This is a chronically ill-looking, expressionless face, 79-year-old male, lying in bed in no acute distress. HEENT: Head is normocephalic, atraumatic. Mucous membranes moist. NECK: No JVD noted. No carotid bruits. No lymphadenopathy. No thyromegaly. CARDIOVASCULAR EXAM: S1, S2 heard. No murmurs, gallops, or rubs. Regular rate and rhythm. RESPIRATORY EXAM: Clear bilaterally to auscultation. No work of breathing or using accessory muscles. ABDOMEN: Soft, nontender to palpation. Bowel sounds present. No organomegaly. EXTREMITIES: There is a stress hand tremor more. No clubbing, cyanosis or edema. Peripheral pulses present in both legs. NEUROLOGICAL EXAM: The patient moves 4 extremities. His speech is slow, but coherent. Some hand tremor noted. Muscle tone is increased. LABORATORY DATA: White cell count 3.51, hemoglobin 12.5, hematocrit 38.0, platelets 209 with normal BMP, except glucose 220. Urinalysis shows UTI. ASSESSMENT: 1. Severe headache after a fall. 2. Urinary tract infection. 3. Diabetes mellitus type 2. 4. Parkinson disease. 5. Hypercholesterolemia. 6. Coronary artery disease. PLAN: 1. At this point, considering his headache and confusion is getting better, we will continue to monitor this patient for 24 more hours. Since admission, we have ordered an MRI of the brain to have a better visualization of the brain anatomy. The patient is not having any aphasia anymore, mild neck pain. We will continue to monitor this patient closely. 2. UTI: Patient has been started on ceftriaxone. Urine cultures still pending. We will continue with same management. 3. Diabetes mellitus type 2. We will start with sliding scale insulin. Accu-Chek before meals and also at bedtime. 4. Parkinson disease. We will restart home medication while he is here in the hospital. 5. Coronary artery disease, stable. Patient is not complaining of any chest pain. So, at this point, we will continue to monitor. cc: Jack Amezcua MD
--- NOTE | 2019-08-11 12:17 | Diag Imaging Result Doc PS360 ---
MRI BRAIN W/WO CONTRAST - 08/11/2019 INDICATION: syncope COMPARISON: 08/10/2019 FINDINGS: There is no area of restricted diffusion. There is stable advanced cerebral atrophy. There is mild scattered cerebral white matter hyperintensity suggesting chronic microvascular ischemia. No intracranial mass or hemorrhage. There is no area of abnormal contrast enhancement. IMPRESSION: No acute process. Electronically signed by Tim Vann 08/11/2019 12:14 PM
[2019-08-11] MEDS: PRINIVIL PO SCH (12:23)
[2019-08-11] MEDS: LOPRESSOR PO SCH ×2 (12:23→20:46)
[2019-08-11] MEDS: ASPIRIN PO SCH (12:23)
[2019-08-11] MEDS: SINEMET 25/100 PO SCH ×2 (15:39→20:46)
[2019-08-11] MEDS: LIPITOR PO SCH (20:46)
[2019-08-11] MEDS ORDERED: ROCEPHIN ONE (23:06)
--- NOTE | 2019-08-12 00:13 | ECHO REPORT ---
ORDER DATE: 08/10/2019 MEASUREMENTS: Septal thickness 1.2, left ventricular internal diameter in diastole 4.5, posterior wall thickness 1.2, left ventricular internal diameter in systole 2.7. Aortic root 3.8, left atrium 3.7. SUMMARY: 1. Adequate quality study. 2. Aortic valve sclerotic and trileaflet. Aortic valve opening appears to be adequate. The peak gradient across aortic valve is less than 10 mmHg. There is mild aortic regurgitation. Mitral, tricuspid, and pulmonic valves are without evidence of structural abnormality with mild mitral regurgitation, very mild tricuspid regurgitation, and mild pulmonic insufficiency. Estimated systolic PA pressure by Doppler is 40 mmHg. Aortic root is normal size. 3. Normal left ventricular chamber size with mild concentric left hypertrophy is suggested. The estimated left ejection fraction appears to be at least 60%. No regional wall motion abnormality can be appreciated. Left atrium, right atrium, right ventricle are normal size with normal right ventricular systolic function. 4. No pericardial effusion. 5. Appearance of inferior vena cava suggests normal central venous pressure. CONCLUSIONS: 1. Aortic valve sclerosis without stenosis with mild aortic regurgitation. 2. Mild mitral regurgitation. 3. Very mild tricuspid regurgitation with mild pulmonary hypertension by Doppler. 4. Estimated left ejection fraction at least 60%. cc: Sy Honeycutt MD
--- NOTE | 2019-08-12 01:30 | EKG Report ---
Test Performed on : 08/11/2019 8:31:54 PM Test Reason : CP Blood Pressure : / mmHG Vent. Rate : 052 BPM Atrial Rate : 052 BPM P-R Int : 174 ms QRS Dur : 090 ms QT Int : 422 ms P-R-T Axes : 009 -07 068 degrees QTc Int : 392 ms Sinus bradycardia. Otherwise normal ECG When compared with ECG of 10-AUG-2019 21:54, (Unconfirmed) No significant change was found Unconfirmed Result
[2019-08-12] MEDS: ROCEPHIN 1 GM in NS 50 ML IV SCH ×2 (03:13→23:12)
[2019-08-12 06:28] LABS: BASO# 0.02 X1000 (0.0-0.2); BASO% 0.4 % (0.0-0.8); EOS# 0.11 X1000 (0.0-0.7); EOS% 1.9 % (0.0-10.0); HEMATOCRIT 38.4 % (42.0-52.0); HEMOGLOBIN 12.8 g/dL (14.0-18.0); IMM GRAN# 0.02 X1000 (0.0-0.04); IMM GRAN% 0.4 % (0.0-0.5); LYMPH# 1.42 X1000 (1.2-3.4); MCH 29.1 PG (27-31); MCHC 33.3 g/dL (33-37); MCV 87.3 FL (81-99); MONO# 0.66 X1000 (0.11-0.59); MONO% 11.6 % (1.7-9.3); MPV 8.9 FL (7.4-10.4); NEUT# 3.46 X1000 (1.4-6.5); NEUT% 60.7 % (42.2-75.2); PLT 196 X1000 (130-400); RDW 13.2 % (11.5-14.5); WBC 5.69 X1000 (4.8-10.8)
[2019-08-12 06:49] LABS: AGAP 10; ALBUMIN 3.7 g/dL (3.5-5.0); ALKALINE PHOSPHATASE 74 U/L (32-122); BUN 14 mg/dL (8-22); CHLORIDE 102 mmol/L (98-107); COSMO 272; CREATININE 0.8 mg/dL (0.7-1.2); ESTIMATED GFR > 60; GLUCOSE 159 mg/dL (70-104); GOT 13 U/L (10-34); GPT 9 U/L (10-44); POTASSIUM 4.6 mmol/L (3.5-5.1); SODIUM 134 mmol/L (136-145); TCO2 23 mmol/L (25-35); TOTAL PROTEIN 6.3 g/dL (6.3-8.3)
[2019-08-12] MEDS: SINEMET 25/100 PO SCH ×3 (08:20→20:03)
[2019-08-12] MEDS: LOPRESSOR PO SCH ×2 (08:20→20:04)
[2019-08-12] MEDS: GLUCOPHAGE PO SCH (08:20)
[2019-08-12] MEDS: ASPIRIN PO SCH (08:20)
[2019-08-12] MEDS: PRINIVIL PO SCH (08:20)
--- NOTE | 2019-08-12 19:21 | PROGRESS NOTE ---
DATE: 08/12/2019 SUBJECTIVE: Patient notes he is still having a severe headache. States he is feeling a bit better. Has been out of bed. His falling is improved. PHYSICAL EXAMINATION: Vital Signs: Reviewed. Temp 97 degrees, pulse 57, respiratory rate 18, BP 114/63. General: Patient is awake, pleasant, in no distress. HEENT: Normocephalic. Neck: Supple. Cardiovascular: Regular rate. Chest: Clear. Abdomen: Soft. Extremities: Moves all extremities. ASSESSMENT: 1. Severe headache after fall. Appears resolved. 2. Urinary tract infection. Culture is still pending. 3. Diabetes. 4. Parkinson's. 5. High cholesterol. PLAN: We are going to continue patient in the hospital. Follow his culture results. Once it is resulted, if possible, we will discharge him home today. Otherwise, we will wait until tomorrow for the culture results. cc: Jan Floyd MD
[2019-08-12] MEDS: LIPITOR PO SCH (20:04)
[2019-08-13 07:41] VITALS: BP 118/58
[2019-08-13] MEDS: GLUCOPHAGE PO SCH (09:00)
[2019-08-13] MEDS: SINEMET 25/100 PO SCH (09:00)
[2019-08-13] MEDS: ASPIRIN PO SCH (09:00)
[2019-08-13] MEDS: PRINIVIL PO SCH (09:00)
[2019-08-13] MEDS: LOPRESSOR PO SCH (09:01)
--- NOTE | 2019-08-13 18:00 | DISCHARGE SUMMARY ---
ADMISSION DATE: 08/10/2019 DISCHARGE DATE: 08/13/2019 DISCHARGE DIAGNOSIS: 1. Headaches, postconcussion, improving. 2. Frequent falls due to Parkinson's. 3. Parkinson's. 4. Diabetes. 5. Urinary tract infection with yeast. 6. Known coronary artery disease. CONSULTATIONS: None. PROCEDURES: The patient had a ejection fraction of 60%. MRI of the brain was normal and carotids at less than 40%. BRIEF HOSPITAL COURSE: The patient is a 79-year-old male who presented to the hospital after having fallen and developed headaches. Thankfully, CT and MRI both were normal. Carotids and echo has been normal. His nausea is improving. Discussed with him that he certainly has a concussion that is likely the cause of his nausea and his continued headaches. We will continue to follow. DISCHARGE INSTRUCTIONS: He will follow up outpatient with treatment facility of choice. cc: Jan Floyd MD
== END 2019-08-13 10:23 | disposition home or self-care (01) | DRG 89 ==
LOC: P.ED 20:14 → SUATTDRO 23:37 → P.MEDSURG 08-11 00:06
PROVIDERS: ATTEND Family Medicine